=== PATIENT | female | born 1965 | race Hispanic/Latino ===

== ENCOUNTER 2019-02-09 06:51 | Day surgery (SDC) | payer OTHER ==
[2019-02-09] MEDS ORDERED: Ringers Lactate 1,000 ML IV ONE (07:37)
[2019-02-09] MEDS ORDERED: PROPOFOL 200 MG/20 ML VIAL IV ONE ×2 (08:34→09:53)
[2019-02-09] MEDS ORDERED: GLYCOPYRROLATE 0.2 MG/ML SYR ONE (08:34)
[2019-02-09] MEDS ORDERED: LIDOCAINE 1% MPF 2 ML AMPULE ONE (08:35)
--- NOTE | 2019-02-09 09:40 | ENDO RPT ---
[address], [id number] COLONOSCOPY PROCEDURE REPORT EXAM DATE: 02/09/2019 PATIENT NAME: Laurie Kong MR #: [id number] BIRTHDATE: 1965 ATTENDING: Reggie Martin DR STATUS: outpatient FREELANCE PROGRAMMER/APP DEVELOPER: Heath Lazcano RN, Steve Hurtado, and Rocio Best RN INDICATIONS: The patient is a 53 yr old Female here for a colonoscopy due to colon cancer screening PROCEDURE PERFORMED: Colonoscopy with biopsy MEDICATIONS: Per Anesthesia. ESTIMATED BLOOD LOSS: None CONSENT: The patient understands the risks and benefits of the procedure and understands that these risks include, but are not limited to: sedation, allergic reaction, infection, perforation and/or bleeding. Alternative means of evaluation and treatment include, among others: physical exam, x-rays, and/or surgical intervention. The patient elects to proceed with this endoscopic procedure. DESCRIPTION OF PROCEDURE: During intra-op preparation period all mechanical medical equipment was checked for proper function. Hand hygiene and appropriate measures for infection prevention was taken. Procedure, possible complications, alternatives including, but not limited to possibility of bleeding, perforation, tear, infection, sepsis, need for surgery, need for blood transfusion, were explained to the patient. After the risks, benefits and alternatives of the procedure were thoroughly explained, Informed consent was verified, confirmed and timeout was successfully executed by the treatment team. The patient was placed in the left lateral position. A digital rectal exam was performed and revealed no abnormalities of the rectum. After appropriate level of anesthesia, the scope was passed. The EC-[id number] ([id number]) endoscope was introduced through the anus and advanced to the cecum, which was identified by both the appendix and ileocecal valve. The quality of the prep was fair. The instrument was then slowly withdrawn as the colon was fully examined. Scope withdrawal time was 10 minutes. COLON FINDINGS: There was mild diverticulosis noted in the sigmoid colon with associated tortuosity. Mild Colitis - likely due to prep and colonoscopy. Retroflexed views revealed no abnormalities. The scope was then completely withdrawn from the patient and the procedure terminated. ADVERSE EVENTS: There were no complications. IMPRESSIONS: 1. There was mild diverticulosis noted in the sigmoid colon 2. Mild Colitis - likely due to prep and colonoscopy RECOMMENDATIONS: 1. avoid NSAIDS for 2 weeks 2. await biopsy results 3. follow-up: office 2 week(s) 4. Monitor for any evidence of rectal bleeding. 5. yearly hemoccult starting in 4 years 6. low fiber / diverticular diet RECALL: Return in 5 year(s) for Colonoscopy, pending biopsy results. Reggie Martin DR eSigned: Reggie Martin DR 02/09/2019 9:39 AM cc: CPT CODES: ICD9 CODES: PATIENT NAME: Laurie Kong MR#: [id number]
== END 2019-02-09 10:15 | disposition home or self-care (01) ==
LOC: OR 06:51
PROVIDERS: ATTEND Surgery
PROC: 0DBE8ZX Excision of Large Intestine, Via Natural or Artificial Opening Endoscopic, Diagnostic (ICD-10-PCS; principal; 2019-02-09 08:30)
DX: Z12.11 Encounter for screening for malignant neoplasm of colon (principal); K57.30 Diverticulosis of large intestine without perforation or abscess without bleeding; K52.9 Noninfective gastroenteritis and colitis, unspecified; E78.00 Pure hypercholesterolemia, unspecified; I10 Essential (primary) hypertension; Z79.899 Other long term (current) drug therapy
CPT/HCPCS: 45380; 88305; J2704 ×2; J2001